=== PATIENT | female | born 2005 ===

== ENCOUNTER 2025-01-08 15:45 | Emergency (ER) | payer MEDICAID, SELFPAY ==
--- NOTE | ~2025-01-08 | CT_ITS ---
CLINICAL HISTORY: head injury, vomiting CT head without contrast. COMPARISON: None FINDINGS: The visualized paranasal sinuses are clear. The mastoid air cells are clear. No calvarial fracture. No evidence for mass or mass effect. No intracranial hemorrhage or abnormal extra-axial fluid collection. No evidence of hydrocephalus. The basilar cisterns are patent. Posterior fossa appears unremarkable. IMPRESSION: 1. No acute intracranial findings. This document has been electronically signed by: Nico Riggins MD on 01/08/2025 18:10:07
--- NOTE | 2025-01-08 15:55 | ED.NAVMDI ---
HPI - Nausea/Vomiting/Diarrhea General Chief complaint: Nausea/Vomiting/Diarrhea Stated complaint: vomiting, passed out Time Seen by Provider: 01/08/25 19:29 Source: patient and other (Friend) Mode of arrival: ambulatory Limitations: no limitations History of Present Illness ED Provider: Dr. Mauro Florez HPI Narrative: 19-year-old transgender male history of IBS and acid reflux who uses the pronouns he and they who presents emergency department for evaluation of nausea, vomiting, abdominal pain and 2 syncopal episodes. Patient states he vomits daily and he attributes this to his IBS and acid reflux. He states today however he vomited all day and was not able to hold down any food or fluid. His friend who is with him witnessed 2 syncopal episodes after the patient vomited. The patient's syncopal episodes were brief and the patient did not injure himself. He states that he is feeling dizzy and lightheaded especially if he stands up too quickly. He is complaining of abdominal pain which she describes as a pressure-like pain. He points to his epigastric area in his right upper quadrant when asked to localize the pain. The patient does smoke marijuana daily but he was never been diagnosed with cyclic vomiting syndrome. You denied fever, chills, rhinorrhea, sore throat, cough, chest pain, shortness of breath, diarrhea, dark, black or bloody stools. Related Data Previous Rx's ?Medication ?Instructions ?Recorded famotidine 20 mg tablet (Pepcid) 20 mg PO DAILY #30 tabs 01/08/25 ondansetron 4 mg disintegrating 4 mg PO Q6-8H PRN nausea and 01/08/25 tablet vomiting #14 tabs Allergies Allergy/AdvReac Type Severity Reaction Status Date / Time No Known Allergies Allergy Verified 01/08/25 16:00 Review of Systems Review of Systems: Yes all other systems are reviewed and are negative [facility] Past Medical History [facility] Narrative: Social history: The patient smokes 1 or 2 cigarettes per day. He drinks alcohol 2 times a week and when he drinks he will drink 3-4 glasses of wine or mixed drinks. He does smoke marijuana 3 times daily. Social History Social History Smoked in Last 30 Days: No Use of substances other than those prescribed or required for medical reasons: No Advance Directives: No Advance Directives Information Provided: No Patient : No Physical Exam Vital Signs: Vital Signs: Last Vital Signs Temp 97.9 F 01/08/25 21:50 Pulse 61 01/08/25 21:50 Resp 18 01/08/25 21:50 BP 136/70 01/08/25 21:50 Pulse Ox 99 01/08/25 21:50 O2 Del Method Room Air 01/08/25 21:50 BMI result Body Mass Index 29.2 Vital signs were normal Exam: General: Awake, alert in no distress Head: Normocephalic, atraumatic EENT: PERRL, Lids normal, sclera normal, conjunctiva normal, nose normal , ears normal, throat without erythema or exudates Neck: Supple, no adenopathy Lung: breath sounds symmetric, no wheezing, rales or rhonchi Chest: symmetric movement, nontender Heart: regular rate and rhythm, normal S1, S2 no murmurs or rubs Abdomen: soft, non-tender, nondistended, normal bowel sounds Back: no vertebral tenderness, no CVAT Extremities: no deformities, moves all extremities symmetrically Neuro: Awake, alert, oriented, normal speech, cranial nerves intact, moves all extremities symmetrically Psych: Pleasant, cooperative Course Course Course Narrative: This is an RME performed by Johnathan Lugo CNP: Additional HPI, ROS, PE not included below will be deferred to primary provider. 19 yo accompanied by male partner, without sig PMHx, presents to ED due to waking up at 12:00 today with nausea and vomiting. Partner states he witnessed her passing out twice after vomiting, hitting her head on the floor, and had to pick her up off the floor. She does not remember falling or hitting her head. When they went to vomit again, she reports vision going black . Reports 4 episodes of vomiting today. She reports she went out last night and had 1 drink and smoked marijuana. Denies eating new/bad food. States she broke out in hives yesterday after being stressed. Denies bloody vomit, diarrhea, black/bloody stool, PE: patient in wheelchair feeling weak, no active vomiting in triage Plan: labs, EKG, viral swab, CT head Medications Administered Discontinued Medications Generic Name Dose Route Start Last Admin Trade Name Freq PRN Reason Stop Dose Admin Famotidine 20 mg 01/08/25 19:49 01/08/25 20:02 Famotidine/Pf 20 Mg/2 Ml Vial IVPUSH 01/08/25 19:50 20 mg ONCE ONE Administration Sodium Chloride 1,000 mls @ 999 mls/hr 01/08/25 19:49 01/08/25 20:58 Ns IV 01/08/25 20:49 Infused .Q1H1M STA Infusion Sodium Chloride 1,000 mls @ 999 mls/hr 01/08/25 19:52 01/08/25 20:58 Ns IV 01/08/25 20:52 Infused .Q1H1M STA Infusion Ketorolac Tromethamine 15 mg 01/08/25 19:49 01/08/25 20:02 Ketorolac Tromethamine 15 Mg/Ml Vial IVPUSH 01/08/25 19:50 15 mg ONCE STA Administration Ondansetron HCl 4 mg 01/08/25 19:49 01/08/25 20:02 Ondansetron Hcl 4 Mg/2 Ml Vial IVPUSH 01/08/25 19:50 4 mg ONCE ONE Administration Medical Decision Making Medical Decision Making [facility] Narrative: 19-year-old transgender male history of IBS and acid reflux who uses the pronouns he and they who presents emergency department for evaluation of nausea, vomiting, abdominal pain and 2 syncopal episodes. Patient has had multiple episodes of vomiting throughout the day with no food or fluid intake. Patient's syncopal episodes occurred after vomiting. He states he is feeling lightheaded and dizzy whenever he stands up. He is having epigastric and right upper quadrant pain. Review of systems were negative. Vital signs were normal. Exam did reveal epigastric and right upper quadrant tenderness. Differential diagnosis: ?Includes but is not limited to viral syndrome, gastritis, GERD, cyclic vomiting syndrome, anemia, electrolyte abnormalities, vasovagal syncope Course: 20:02 My interpretation patient's laboratory evaluation is as follows: Normocytic anemia with an H&H of 12.3 and 35.4. BUN elevated 24 with a normal creatinine. LFTs were normal. Ethanol was below detectable limits. Urinalysis was positive for leukocyte esterase. Microscopic revealed 12-50 WBCs trace bacteria. COVID-19, influenza and RSV tests were negative The patient's presentation is consistent with either a viral syndrome or flare-up of his acid reflux disease/gastritis. Patient has 2 syncopal episodes are consistent with post emesis vasovagal syncope caused by dehydration volume depletion. I ordered normal saline IV x2 L, Zofran 4 mg IV, Pepcid 20 mg IV and Toradol 15 mg IV. 21:21 The patient is feeling significantly better after the above treatment. Patient was discharged home with prescriptions for Zofran 4 mg ODT every 6-8 hours as needed for nausea and vomiting and Pepcid 20 mg daily for 30 days. Patient was given printed and verbal instructions at the time of discharge. He was also given a return to work note. Admission/Observation Consideration of admission/observation: Escalation of care including admission/observation considered (Yes) Lab Data MDM Lab Attestation statement: I reviewed the patient's lab results. 01/08/25 16:28 01/08/25 16:28 Labs: Lab Results 01/08/25 Range/Units 16:28 WBC 14.4 H (4.8-10.8) X10*3/uL RBC 3.83 L (4.20-5.50) X10*6/uL Hgb 11.9 L (12.0-16.0) g/dl Hct 34.9 L (37.0-47.0) % MCV 91.1 (80.0-98.0) fL MCH 31.1 (27.0-33.0) pg MCHC 34.1 (31.0-35.0) g/dl RDW 13.1 (11.0-16.0) % Plt Count 266 (160-400) X10*3/uL MPV 10.3 (9.4-12.3) fL Immature Gran % (Auto) 0.5 H (0.0-0.4) % Neut % (Auto) 78.3 H (45-73) % Lymph % (Auto) 15.3 L (20-40) % [place] % (Auto) 5.3 (2-11) % Eos % (Auto) 0.4 (0-4) % Baso % (Auto) 0.2 (0-2) % Lymph # (Auto) 2.2 (1.2-4.9) X10*3/uL [place] # (Auto) 0.8 (0.1-1.2) X10*3/uL Eos # (Auto) 0.1 (0.0-0.4) X10*3/uL Baso # (Auto) 0.0 (0.0-0.2) X10*3/uL Abs Immat Gran (auto) 0.07 H (0.00-0.03) X10*3/uL Absolute Neuts (auto) 11.3 H (2.0-8.3) x10*3/uL Absolute Nucleated RBC 0.000 (0.0-0.012) X10*3/uL Nucleated RBC % (auto) 0.0 (0.0-0.2) /100WBC Sodium 139 (135-145) mmol/L Potassium 4.2 (3.3-5.1) mmol/L Chloride 107 (96-108) mmol/L Carbon Dioxide 23 (22-29) mmol/L Anion Gap 13 (12-20) BUN 11 (9-16) mg/dL Creatinine 0.73 (0.5-1.4) mg/dL Estim Creat Clear Calc 109.2 Estimated GFR > 60 Random Glucose 85 (60-115) mg/dL Calcium 8.8 (8.4-10.2) mg/dL Magnesium 1.8 (1.6-2.6) mg/dL Total Bilirubin 0.3 (0.0-1.0) mg/dL AST 20 (5-31) U/L ALT 13 (0-31) U/L Alkaline Phosphatase 29 L (39-117) U/L Troponin I High Sens < 2.7 (<3.5-17.0) ng/L Total Protein 7.7 (6.5-8.0) g/dL Albumin 4.2 (3.5-5.0) g/dL Lipase 14 (8-78) U/L Beta HCG, Quant < 2 mIU/mL Urine Color Yellow Urine Appearance Clear Urine pH 5.5 (5.0-9.0) Ur Specific [place] 1.025 (1.005-1.025) Urine Protein Negative (Neg-Trace) mg/dL Urine Glucose (UA) Negative (Negative) mg/dL Urine Ketones Negative (Negative) mg/dL Urine Blood Negative (Negative) Urine Nitrite Negative (Negative) Ur Leukocyte Esterase Trace H (Negative) Urine RBC 0-2 (0-2) /HPF Urine WBC 0-5 (0-5) /HPF Ur Squamous Epith Cells 3-5 (0-2) /HPF Urine Bacteria None Seen (None Seen) Hyaline Casts 0-2 (0-2) /LPF Urine Test NEGATIVE (NEGATIVE) Influenza Type A (PCR) NEGATIVE (Negative) Influenza Type B (PCR) NEGATIVE (Negative) RSV RNA Qual (PCR) NEGATIVE (Negative) SARS-CoV-2 RNA (RT-PCR) NEGATIVE (Negative) Independent Interpretation I performed an independent interpretation of an: EKG Interpretation: My independent interpretation of the patient's 12 EKG done on 01/08/2025 at 16:17 hours is as follows: Normal sinus rhythm rate of 72, normal OR interval, QRS duration QTC interval, no ST segment elevation, no ST segment depression, no significant T-wave abnormalities Independent Historian Clinical information obtained from an independent historian. History obtained from or confirmed by: Friend Prescription Management I considered prescription management with: Other (Antiemetic: Zofran ODT; H2 simon: Pepcid) Discharge Plan Discharge Clinical Impression: Gastritis, Nausea & vomiting, Acute dehydration, Vasovagal syncopes Patient Disposition: Home, Self-Care Instructions: Gastritis (DC), Syncope (ED) Additional Instructions: Your blood work revealed mild anemia otherwise was unremarkable. At this time I believe that your daily vomiting may be caused by inflammation of your stomach from too much acid (gastritis) Take Pepcid (famotidine) 20 mg pills, 1 pill once a day for 2 weeks. ?This medication reduces the amount of acid that your stomach produces and will help the inflammation in your stomach heal. Take Zofran ODT 4 mg pills, 1 pill dissolved in your mouth every 8 hours as needed for nausea and vomiting. Continue taking your medications as prescribed by your providers. Follow-up with your doctor in 2 days. Please return to the emergency department if your symptoms get worse or if you develop any symptoms that are concerning to you. Please see the work note Prescriptions: New ondansetron 4 mg tablet,disintegrating 4 mg PO Q6-8H PRN (Reason: nausea and vomiting) Qty: 14 0RF famotidine [Pepcid] 20 mg tablet 20 mg PO DAILY Qty: 30 1RF Stand Alone Forms: Work/School Release Interventions: ED Discharge Assessment Last Done: 01/08/25 21:50 Discharge Date/Time: 01/08/25 21:51 Print Language: Kazakh
[2025-01-08 15:58] VITALS: BP 136/74; PULSE 72; RESP 18; TEMP 36.8; O2SAT 99; BMI 29.2
--- NOTE | 2025-01-08 16:03 | ECG_ITS ---
Test Reason : syncope Blood Pressure : */* mmHG Vent. Rate : 72 BPM Atrial Rate : 72 BPM P-R Int : 120 ms QRS Dur : 92 ms QT Int : 386 ms P-R-T Axes : -23 51 15 degrees QTcB Int : 422 ms Normal sinus rhythm RSR' or QR pattern in V1 suggests right ventricular conduction delay Borderline ECG No previous ECGs available Referred By: Linda Lugo Electronically Signed By: HOMAR CH
[2025-01-08 16:35] LABS: MANUAL DIFF FLAG NO
[2025-01-08 16:40] LABS: Basophils Percent Auto 0.2 % (0-2); Eosinophils Absolute Auto 0.1 X10*3/uL (0.0-0.4); Eosinophils Percent Auto 0.4 % (0-4); Hematocrit 34.9 % (37.0-47.0); Hemoglobin 11.9 g/dl (12.0-16.0); Imm Gran Abs Auto 0.07 X10*3/uL (0.00-0.03); Imm Gran Pct Auto 0.5 % (0.0-0.4); Lymphocytes Absolute Auto 2.2 X10*3/uL (1.2-4.9); Lymphocytes Percent Auto 15.3 % (20-40); Mean Corpuscular HGB Conc 34.1 g/dl (31.0-35.0); Mean Corpuscular Hemoglobin 31.1 pg (27.0-33.0); Mean Corpuscular Volume 91.1 fL (80.0-98.0); Mean Platelet Volume 10.3 fL (9.4-12.3); Monocytes Absolute Auto 0.8 X10*3/uL (0.1-1.2); Monocytes Percent Auto 5.3 % (2-11); Neutrophils Absolute Auto 11.3 x10*3/uL (2.0-8.3); Neutrophils Percent Auto 78.3 % (45-73); Platelet Count 266 X10*3/uL (160-400); Red Blood Count 3.83 X10*6/uL (4.20-5.50); Red Cell Distribution Width 13.1 % (11.0-16.0); White Blood Count 14.4 X10*3/uL (4.8-10.8)
[2025-01-08 16:42] LABS: Appearance Urine Clear; Color Urine Yellow; Glucose Urine UA Negative (Negative); Leukocyte Esterase Urine Trace (Negative); Nitrite Urine Negative (Negative); PH 5.5 (5.0-9.0); Specific Gravity - Urine 1.025 (1.005-1.025); UMIC TRIGGER UACC YES; UPreg QC Valid YES; Urine Blood Negative (Negative); Urine Ketones Negative (Negative); Urine Pregnancy NEGATIVE (NEGATIVE); Urine Protein Negative (Neg-Trace)
[2025-01-08 16:59] LABS: Alanine Aminotransferase 13 U/L (0-31); Albumin Level 4.2 g/dL (3.5-5.0); Anion Gap 13 (12-20); Aspartate Amino Transferase 20 U/L (5-31); Bilirubin Total 0.3 mg/dL (0.0-1.0); Blood Urea Nitrogen 11 mg/dL (9-16); Calcium 8.8 mg/dL (8.4-10.2); Carbon Dioxide 23 mmol/L (22-29); Chloride 107 mmol/L (96-108); Creatinine Clr Calc Pharmacy 109.2; Estimated Glomerular Filt Rate > 60; Glucose Random 85 mg/dL (60-115); HCG Quantitative < 2 mIU/mL; Lipase 14 U/L (8-78); Magnesium 1.8 mg/dL (1.6-2.6); Potassium 4.2 mmol/L (3.3-5.1); Sodium 139 mmol/L (135-145); Total Protein 7.7 g/dL (6.5-8.0)
[2025-01-08 17:04] LABS: Troponin-I High Sensitivity < 2.7 ng/L (<3.5-17.0)
[2025-01-08 17:17] LABS: Influenza A PCR NEGATIVE (Negative); Influenza B PCR NEGATIVE (Negative); Resp Syncy Virus RNA Qual PCR NEGATIVE (Negative); SARS COV2 PCR INHOUSE NEGATIVE (Negative)
[2025-01-08 17:23] LABS: Alkaline Phosphatase 29 U/L (39-117)
[2025-01-08 17:51] LABS: Bacteria Urine None Seen (None Seen); Hyaline Casts Urine 0-2 /LPF (0-2); RBC Urine 0-2 /HPF (0-2); WBC Urine 0-5 /HPF (0-5)
[2025-01-08] MEDS: 0.9 % Sodium Chloride 1,000 ML 999 ML IV ×2 (19:57)
[2025-01-08] MEDS: ondansetron HCL 4 MG/2 ML VIAL IVPUSH (20:02)
[2025-01-08] MEDS: Ketorolac Tromethamine 15 MG/ML VIAL IVPUSH (20:02)
[2025-01-08] MEDS: Famotidine/PF 20 MG/2 ML VIAL IVPUSH (20:02)
[2025-01-08 20:06] VITALS: BP 125/71; PULSE 60; RESP 18; O2SAT 99
[2025-01-08 21:50] VITALS: BP 136/70; PULSE 61; RESP 18; TEMP 36.6; O2SAT 99
== END 2025-01-08 21:51 | disposition home or self-care (01) ==
PROVIDERS: Nurse Practitioner Family; Emergency Provider Emergency Medicine Emergency Medical Services
DX: K29.70 Gastritis, unspecified, without bleeding (principal); R11.2 Nausea with vomiting, unspecified; E86.0 Dehydration; R55 Syncope and collapse; R10.11 Right upper quadrant pain; R42 Dizziness and giddiness; F17.210 Nicotine dependence, cigarettes, uncomplicated; F12.90 Cannabis use, unspecified, uncomplicated; F64.0 Transsexualism; Z03.818 Encounter for observation for suspected exposure to other biological agents ruled out
CPT/HCPCS: 0241U; 36415; 70450; 80053; 81001; 81003; 81025; 83690; 83735; 84484; 84702; 85025; 93005; 96361; 96374; 96375; 99285; J1308; J1885; J2405

== ENCOUNTER → 2025-01-08 16:03 | Outpatient (BNV) | payer MEDICAID, SELFPAY | PROVIDERS: Emergency Provider Emergency Medicine Emergency Medical Services; Visit Provider Internal Medicine | DX: R55 Syncope and collapse (principal) | CPT/HCPCS: 93010 ==

== ENCOUNTER → 2025-01-08 16:03 | Outpatient (BNV) | payer MEDICAID, SELFPAY | PROVIDERS: Visit Provider Radiology Diagnostic Radiology | DX: S09.90XA Unspecified injury of head, initial encounter (principal); R11.10 Vomiting, unspecified | CPT/HCPCS: 70450 ==

== ENCOUNTER 2025-05-17 12:28 | Emergency (ER) | payer MEDICAID, SELFPAY ==
[2025-05-17 12:36] VITALS: BP 138/78; PULSE 79; O2SAT 98
--- NOTE | 2025-05-17 12:52 | ECG_ITS ---
Test Reason : PROLONGED QT Blood Pressure : */* mmHG Vent. Rate : 56 BPM Atrial Rate : 56 BPM P-R Int : 134 ms QRS Dur : 86 ms QT Int : 430 ms P-R-T Axes : -1 59 26 degrees QTcB Int : 414 ms Sinus bradycardia with sinus arrhythmia Otherwise normal ECG When compared with ECG of 08-Jan-2025 16:17, No significant change was found Referred By: Kelly Mena Electronically Signed By: HOMAR CH
[2025-05-17 12:54] VITALS: BP 166/99; PULSE 61; RESP 16; TEMP 36.3; O2SAT 100; BMI 25.0
--- NOTE | 2025-05-17 13:02 | ED_ITS ---
HPI - Psych General Chief Complaint: Psychiatric Symptoms Stated Complaint: section 12, calm Time Seen by Provider: 05/17/25 12:46 Source: patient and EMS Mode of arrival: EMS Limitations: no limitations History of Present Illness ED Provider: ABE JOHNSON PA-C HPI Narrative: 20-year-old female with past medical history significant for IBS and GERD presents to the ED today via EMS after making SI statements. Patient tells me that she messaged her therapist last night stating that she wanted to jump off of a bridge. States she has been feeling like harming herself for a while . Reports previous attempts at harming herself by overdosing. She denies taking any medications prior to arrival today. She reports frustration over the inconvenience of being brought to our facility ED today as she had to miss both school and work. Denies HI. Denies AH/VH/TH. Denies etoh consumption or illicit substance use. She also reports concern for STDs. Admits to recent unprotected intercourse. Reports cloudy yellow vaginal discharge and vaginal itching. Denies any abdominal pain, flank pain, urinary sx, lesions/wounds, vaginal bleeding. No other physical concerns. Related Data Home Medications ?Medication ?Instructions ?Recorded ?Confirmed norelgestromin 150 mcg-e.estradiol 1 patch topical QWE EK 05/17/25 05/17/25 35 mcg/24 hr weekly transderm patch (Xulane) testosterone 1 % (50 mg/5 gram) 1 packet transdermal D AILY 05/17/25 05/17/25 transdermal gel packet Allergies Allergy/AdvReac Type Severity Reaction Status Date / Time No Known Allergies Allergy Verified 05/17/25 12:56 Review of Systems 2 Review of Systems: Yes all other systems are reviewed and are negative PMFSH Past Medical History Attestation statement: The following information was validated with the patient. Source: old records reviewed and nursing notes reviewed Social History Social History Unable to assess alcohol history related to: Refusing to respond Smoked in Last 30 Days: No Use of substances other than those prescribed or required for medical reasons: Refusing to respond Advance Directives: No Advance Directives Information Provided: No Do you have a plan to hurt others: No Plan Physical Exam 2 Vital Signs: Vital Signs: Last Vital Signs Temp 99 F 05/17/25 22:26 Pulse 62 05/17/25 22:26 Resp 13 05/17/25 22:26 BP 149/87 H 05/17/25 22:26 Pulse Ox 100 05/17/25 22:26 O2 Del Method Room Air 05/17/25 22:26 BMI result Body Mass Index 25.0 hypertensive, vitals are otherwise wnl General: sitting in silence, staring blankly at the wall Skin: Warm, dry, intact. No rashes or lesions. Head: Normocephalic, atraumatic. EENT: Hearing is intact b/l. Conjunctiva clear. Sclera is anicteric. PERRLA. EOM intact. Moist mucous membranes.? Cardiac: Chest wall symmetric. RRR Lungs: Normal respiratory effort without accessory muscle use. CTA bilaterally Abdomen: Soft, non-tender, non-distended. No rebound tenderness or guarding. Positive BS x4. Pelvic: deferred. Ext: Upper and lower extremities atraumatic, without tenderness, deformity, swelling or erythema Neuro: AOx3. Normal speech. CN 2-12 grossly intact. Ambulating with steady gait. Psych: flat affect Course Course Course Narrative: 1538 -- CBC showing slight leukocytosis to 11.1, which appears to be around patient's baseline when compared to priors. No left shift. No anemia. H&H stable. Chemistry showing slight hyponatremia to 146. No other acute electrolyte abnormalities requiring intervention. No LUPE. Liver function at baseline. Urine showing trace leukocyte esterase, 6-10 WBCs. She denies any urinary symptoms at this point. Will await urine culture. Urine negative. CT/NG, BV and trich pending. Urine toxicology positive for THC, otherwise negative. Salicylates undetectable. Ethanol 53. EKG showing sinus bradycardia with sinus arrhythmia. No acute ischemic changes. > at this time, patient is medically cleared. pending care team eval. placed in pysician observation. Reevaluation(s) Reevaluation #1: Time: 22:49 Date: 05/17/25 Provider: Arya Carranza MD Physician observation ended at 21:00. Patient has been cleared for discharge by the CARE team. I saw the patient as well. The patient denies any suicidality or homicidal ideation. I feel the patient is demeanor was calm and I felt the patient seemed credible. I felt very comfortable discharging the patient. Medical Decision Making Medical Decision Making [facility] Narrative: 20-year-old female with past medical history significant for IBS and GERD presents to the ED today via EMS after making SI statements. Differential diagnosis includes anemia, electrolyte abnormality, mood disorder, anxiety, depression, SI, polysubstance abuse Presentation not consistent with acute organic causes to include delirium, dementia or drug induced disorders (acute ingestions or withdrawal; no evidence of toxidrome).? Given the H&P, I suspect this patient is suicidal and will require observation. Will consult care team to evaluate the patient. Will also obtain labs for medical clearance. Plan: labs, EKG, ASA/APAP levels, ETOH level, UDS, care team consultation, reassessment Will add CT/NG, BV, and trich testing. patient opting to self swab. Differential Diagnosis Differential Diagnoses: The differential diagnosis associated with the presentation includes as above Admission/Observation Consideration of admission/observation: Escalation of care including admission/observation considered Lab Data [facility] Lab Attestation statement: I reviewed the patient's lab results. as above. 05/17/25 13:32 05/17/25 13:32 Labs: Lab Results 05/17/25 05/17/25 05/17/25 Range/Units 13:32 14:58 16:57 WBC 11.1 H (4.8-10.8) X10*3/uL RBC 4.42 (4.20-5.50) X10*6/uL Hgb 13.3 (12.0-16.0) g/dl Hct 40.0 (37.0-47.0) % MCV 90.5 (80.0-98.0) fL MCH 30.1 (27.0-33.0) pg MCHC 33.3 (31.0-35.0) g/dl RDW 12.9 (11.0-16.0) % Plt Count 285 (160-400) X10*3/uL MPV 10.0 (9.4-12.3) fL Immature Gran % (Auto) 0.3 (0.0-0.4) % Neut % (Auto) 66.1 (45-73) % Lymph % (Auto) 24.5 (20-40) % [place] % (Auto) 7.4 (2-11) % Eos % (Auto) 1.3 (0-4) % Baso % (Auto) 0.4 (0-2) % Lymph # (Auto) 2.7 (1.2-4.9) X10*3/uL [place] # (Auto) 0.8 (0.1-1.2) X10*3/uL Eos # (Auto) 0.1 (0.0-0.4) X10*3/uL Baso # (Auto) 0.0 (0.0-0.2) X10*3/uL Abs Immat Gran (auto) 0.03 (0.00-0.03) X10*3/uL Absolute Neuts (auto) 7.4 (2.0-8.3) x10*3/uL Absolute Nucleated RBC 0.000 (0.0-0.012) X10*3/uL Nucleated RBC % (auto) 0.0 (0.0-0.2) /100WBC Sodium 146 H (135-145) mmol/L Potassium 3.4 (3.3-5.1) mmol/L Chloride 108 (96-108) mmol/L Carbon Dioxide 26 (22-29) mmol/L Anion Gap 15 (12-20) BUN 7 L (9-16) mg/dL Creatinine 0.87 (0.5-1.4) mg/dL Estim Creat Clear Calc 91.2 Estimated GFR > 60 Random Glucose 76 (60-115) mg/dL Calcium 9.5 D (8.4-10.2) mg/dL Total Bilirubin 0.4 (0.0-1.0) mg/dL AST 26 (5-31) U/L ALT 22 (0-31) U/L Alkaline Phosphatase 42 (39-117) U/L Total Protein 8.5 H (6.5-8.0) g/dL Albumin 4.8 (3.5-5.0) g/dL Urine Color Yellow Urine Appearance Clear Urine pH 5.5 (5.0-9.0) Ur Specific [place] >= 1.030 H (1.005-1.025) Urine Protein Trace (Neg-Trace) mg/dL Urine Glucose (UA) Negative (Negative) mg/dL Urine Ketones Negative (Negative) mg/dL Urine Blood Negative (Negative) Urine Nitrite Negative (Negative) Ur Leukocyte Esterase Trace H (Negative) Urine RBC 0-2 (0-2) /HPF Urine WBC 6-10 H (0-5) /HPF Ur Squamous Epith Cells 0-2 (0-2) /HPF Urine Bacteria None Seen (None Seen) Hyaline Casts 0-2 (0-2) /LPF Urine Test NEGATIVE (NEGATIVE) Ur N gonorrhoeae DNA (PCR) NOT DETECTED (Not Detect.) Salicylates < 5.0 L (15-30) mg/dL Urine Opiates Screen Not Detected (Not Detect) Ur Buprenorphine Scrn Not Detected (Not Detect) ng/mL Ur Oxycodone Screen Not Detected (Not Detect) ng/mL Urine Methadone Screen Not Detected (Not Detect) ng/mL Urine Fentanyl Screen Not Detected (Not Detect) Ur Barbiturates Screen Not Detected (Not Detect) Ur Phencyclidine Scrn Not Detected (Not Detect) Ur Amphetamines Screen Not Detected (Not Detect) U Benzodiazepines Scrn Not Detected (Not Detect) Urine Cocaine Screen Not Detected (Not Detect) U Marijuana (THC) Screen POSITIVE H (Not Detect) Ethyl Alcohol 53 mg/dL Ur Chlamydia DNA (PCR) NOT DETECTED (Not Detect.) T. vaginalis (PCR) DETECTED A (Not Detect) Bact vaginosis (PCR) NEGATIVE (Negative) C. krusei/glabrata (PCR) NOT DETECTED (Not Detect) Kiana group (PCR) NOT DETECTED (Not Detect) Independent Interpretation I performed an independent interpretation of an: EKG Interpretation: EKG showing sinus bradycardia with sinus arrhythmia, QT 430, QTC 414, no acute ischemic changes or ST elevations External Record Review External record reviewed: Inpatient record Social Determinants Patient?s care significantly limited by Social Determinants of Health including: Other Social Determinant of Health Critical Care Time Critical Care Time Critical Care Time: No Discharge Plan Discharge Clinical Impression: Encounter for behavioral health screening, Encounter for assessment of STD exposure Patient Disposition: Home, Self-Care Additional Instructions: Please plan on following up with your regular provider at the [facility]. You were seen in our Emergency Department today for treatment of a behavioral health issue. It is important after your visit that you follow up with either your behavioral health provider or a primary care doctor within 7 days.? If you have trouble finding a therapist you can reach out to [address] [phone] The National Suicide and Crisis Lifeline can be reached 7 days a week 24 hours a day.? Call 988 to speak with someone.? Return for any worsening symptoms or concerns such as thoughts of self harm or harm to others. Please call 911 if you feel your mental health is worsening.? Prescriptions: No Action norelgestromin-ethin.estradiol [Xulane] 150-35 mcg/24 hr patch weekly 1 patch topical QWEEK testosterone 1 % (50 mg/5 gram) Gel In Packet 1 packet TRANSDERMAL DAILY Referrals: [facility] [Provider Group] Stand Alone Forms: Work/School Release Interventions: [place]-Suicide Risk Severity Scale Last Done: 05/17/25 13:25 ED Discharge Assessment Last Done: 05/17/25 22:26 Discharge Date/Time: 05/17/25 22:30 Print Language: Qatari
[2025-05-17 13:36] LABS: MANUAL DIFF FLAG NO
[2025-05-17 13:38] LABS: Hematocrit 40.0 % (37.0-47.0); Hemoglobin 13.3 g/dl (12.0-16.0); Imm Gran Abs Auto 0.03 X10*3/uL (0.00-0.03); Imm Gran Pct Auto 0.3 % (0.0-0.4); Lymphocytes Absolute Auto 2.7 X10*3/uL (1.2-4.9); Mean Corpuscular HGB Conc 33.3 g/dl (31.0-35.0); Mean Corpuscular Hemoglobin 30.1 pg (27.0-33.0); Mean Corpuscular Volume 90.5 fL (80.0-98.0); NRBC Abs Auto 0.000 X10*3/uL (0.0-0.012); NRBC Pct Auto 0.0 /100WBC (0.0-0.2); Platelet Count 285 X10*3/uL (160-400); Red Blood Count 4.42 X10*6/uL (4.20-5.50); White Blood Count 11.1 X10*3/uL (4.8-10.8)
[2025-05-17 13:55] LABS: Alanine Aminotransferase 22 U/L (0-31); Albumin Level 4.8 g/dL (3.5-5.0); Alkaline Phosphatase 42 U/L (39-117); Anion Gap 15 (12-20); Aspartate Amino Transferase 26 U/L (5-31); Blood Urea Nitrogen 7 mg/dL (9-16); Calcium 9.5 mg/dL (8.4-10.2); Carbon Dioxide 26 mmol/L (22-29); Chloride 108 mmol/L (96-108); Creatinine Clr Calc Pharmacy 91.2; Estimated Glomerular Filt Rate > 60; Potassium 3.4 mmol/L (3.3-5.1); Salicylate < 5.0 mg/dL (15-30); Sodium 146 mmol/L (135-145); Total Protein 8.5 g/dL (6.5-8.0)
--- NOTE | 2025-05-17 14:32 | PC.NURSE ---
Patient's med rec completed, patient states they use testerone gel daily, not found on external med rec. Provider Kelly made aware.
[2025-05-17 15:10] LABS: UPreg QC Valid YES
[2025-05-17 15:12] LABS: Appearance Urine Clear; Glucose Urine UA Negative (Negative); PH 5.5 (5.0-9.0); Specific Gravity - Urine >= 1.030 (1.005-1.025); UMIC TRIGGER UACC YES
[2025-05-17 15:17] LABS: UACC Culture Trigger YES
[2025-05-17 15:22] LABS: Cannabinoid Screen Urine POSITIVE (Not Detect)
[2025-05-17 17:04] VITALS: BP 149/87; PULSE 62; RESP 13; TEMP 37.2; O2SAT 100
--- NOTE | 2025-05-17 17:30 | PC.NURSE ---
Pt to call partner to bring in patient's meds from home. Pharmacy aware.
[2025-05-17 18:12] LABS: CT PCR Urine NOT DETECTED (Not Detect.); NG PCR Urine NOT DETECTED (Not Detect.)
--- OUTSIDE RECORDS SUMMARY | 2025-05-17 20:17 | XMS_ITS | Clinical Summary ---
Author Organization [email or web address] [facility] Address [address] [place] [address] Care Team Providers Care Boiler Repair Supervisor Name Role Phone Unavailable Primary Care Provider Unavailabl e Encounters Date Type Department Care Team Description 03/23/2025 Population Health Risk Score [facility] (C3) Department [address] [facility] [address] [place] [address] Provider, Population Health Generic from Last 3 Months Social History Tobacco Use Types Packs/Day Years Used Date Smoking Tobacco: Never Assessed Comments Unknown Sex and Gender Information Value Date Recorded Sex Assigned at Not on file Legal Sex Female 9:25 PM EDT Gender Identity Not on file Sexual Orientation Not on file Plan of Treatment Health Maintenance Due Date Last Done Comments Chlamydia and Gonorrhea Screening 2003 Depression Screening 2003 SDOH Screening 2003 Disability Screening 2003 Alcohol/Substance Use Screening 2015 Tobacco Screening 2015 Family Planning (PISQ) 2018 Meningococcal B Vaccine (1 of 2 - Standard) 2019 Hepatitis C Screening 2021 Pap Smear 2024 DTaP/Tdap/Td Vaccines (7 - Td or Tdap) 04/12/2024 04/12/2014, 12/23/2007, 10/10/2004, Additional history exists COVID-19 Vaccine ( season) 2025 Influenza Vaccine (#1) 2025 06/30/2014, 2012 Zoster Vaccines (1 of 2) 2053 RSV Patients and Patients Aged 60 years or older (1 - 1-dose 75+ series) 2078 Hepatitis B Vaccines Completed 04/21/2004, 2003, 2003 HIB Vaccines Completed 10/10/2004, 10/04, 2003, Additional history exists IPV Vaccines Completed 12/23/2007, 04/2005, 2003, Additional history exists Hepatitis A Vaccines Completed 05/08/2013, 06/08/20 11 HPV Vaccines Completed 11/08/2014, 06/03, 04/12/2014 Meningococcal Vaccine Completed 10/14/2019, 014 Pneumococcal Vaccine: Pediatrics (0 to 5 Years) and At-Risk Patients (6 to 49) Years Aged Out 02/24/2024, 11/08/2014, 10/10/2004, Additional history exists No longer eligible based on patient's age to complete this topic HIV Screening Completed 08/17/2024, 08/02, 06/24/2024, Additional history exists RSV under 20 months Aged Out No longe r eligible based on patient's age to complete this topic Rotavirus Vaccines Aged Out No longer eligible based on patient's age to complete this topic
--- OUTSIDE RECORDS SUMMARY | 2025-05-17 20:17 | XMS_ITS | Clinical Summary ---
Author Organization [facility] Address [address] [place] [address] Care Team Providers Care Spring Assembler Supervisor Name Role Phone Sandra Robin CHEKO Primary Care Provider Source Comments PLEASE NOTE, if this patient is a minor, it may be UNLAWFUL to discuss sensitive information that is contained in these records (such as FAMILY PLANNING, MENTAL HEALTH or SUBSTANCE ABUSE) with the minor patient's parent or other person without the patient's specific authorization.[facility] Allergies No known active allergies Medications famotidine (PEPCID) 20 mg tablet Take 20 mg by mouth once daily. 5 Active testosterone 1.62 % (40.5 mg/2.5 gram) glpk Apply topically. 5 Active meclizine 25 mg chewable tabletIndication s:Dizziness Place 1 Tablet into mouth, chew and swallow 3 (three) times daily as needed for dizziness or nausea. 90 Tablet 5 Active amitriptyline (ELAVIL) 25 mg tabletIndication s:Migraine without status migrainosus, not intractable, unspecified migraine type Take 1 Tablet by mouth nightly at bedtime. 30 Tablet 2 5 Active SUMAtriptan (IMITREX) 25 mg tabletIndication s:Migraine without status migrainosus, not intractable, unspecified migraine type Take 1 Tablet by mouth 1 (one) time as needed for migraine for up to 1 dose. 6 Tablet 5 Active norelgestromin-e thin.estradioL 150-35 mcg/24 hr patchIndications :Family planning Place 1 Patch onto the skin once a week Continuous cycle use, no patch free week. 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 C/w regimen, repeat levels in 1-2 months due to missed dose Headaches due to old head injury 10/18/2019 H/O strabismus 05/07/2013 Overview (05/07/2013): Wears glasses. Resolved Problems Problem Noted Date Diagnosed Date Resolved Date Class 1 obesity 02/24/2024 08/17/2024 Sinusitis 03/25/2023 04/24/2023 Severe major depression with psychotic features ([facility]) 02/19/2023 02/19/2023 02/24/2024 Gastroesophageal reflux dise ase without esophagitis 03/10/2017 10/18/2019 H/O bronchiolitis 05/07/2013 10/18/2019 H/O neutropenia 05/07/2013 10/18/2019 Overview (05/07/2013): 2009, resolved. Immunizations Immunization Administration Dates Next Due DTAP (DAPTACEL),5 PERTUSSIS ANTIGENS ,10/10/2004,2003,08/17,2003 HEP B, PED/ADOL (POKQUZG-Z-DMHH/RECOMBIVAX-PEDS) 04/21/2004,2003,2003 HPV, QUADRIVALENT 11/08/2014,06/30/2014,04/12/20 14 Hep A, Ped/adol, 2 Dose 05/08/2013,06/08/2011 Hib (PRP-T) 10/10/2004, 4,2003,06/15 INFLUENZA, SEASONAL, INJECTA BLE, PRESERVATIVE FREE 06/30/2014,05/08/2013 IPV (IPOL) 12/23/2007, 5,2003,08/17,2003,2003 MENINGOCOCCAL MCV4P (MENACTRA) 10/14/2019 MENINGOCOCCAL MPSV4 04/12/2014 MMR (MMR II/Priorix) 12/23/2007,04/21/2004 PNEUMOCOCCAL CONJUGATE PCV 13 11/08/2014 PNEUMOCOCCAL CONJUGATE PCV 2 0 (Prevnar 20) 02/24/2024 PNEUMOCOCCAL CONJUGATE PCV 7 10/10/2004, 2003,2003,06/15 TDAP 04/12/2014 Varicella (Varivax), Live Vaccine 12/23/2007, Family History Medical History Relation Name Comments No Known Problems Father Leukemia Maternal Grandmother Breast cancer Mother Breast cancer Other Cancer Other Relation Name Status Comments Father Alive Maternal Grandmother Alive Mother Alive Other Social History Tobacco Use Types Packs/Day Years Used Date Smoking Tobacco: Former Cigarettes Smokeless Tobacco: Never Tobacco Cessation:Counseling Given: Not Answered Comments:1 cig every 2 days Alcohol Use Standard Drinks/Week Comments Yes 0 (1 standard drink = 0.6 oz pur e alcohol) socially Social Connections Answer Date Recorded Connectedness 0 03/16/2022 Financial Resource Strain Answer Date R ecorded Financial Resource Strain 0 2021 Stress Answer Date Recorded Stress 0 03/16/2022 Physical Activity Answer Date Recorded Physical Activity 0 04/25/2019 Food Insecurity Answer Date Recorded Food 0 03/16/2022 Transportation Needs Answer Date Record ed Transportation 0 03/16/2022 Housing Stability Answer Date Recorded Housing 0 03/16/2022 Safety and Environment Answer Date Jaskaran rded How often does anyone, inclu ding family and friends, physically hurt you? 1 02/24/2024 Utilities Answer Date Recorded Utilities 0 03/16/2022 Employment Answer Date Recorded Stress 0 03/16/2022 Comments No Sex and Gender Information Value Date Recorded Sex Assigned at Female 07/10/2024 5:23 AM PST Legal Sex Female 11:36 AM PDT Gender Identity Transgender Male 10/14/2019 11:1 4 AM PST Sexual Orientation Pansexual 02/24/2024 5: 42 AM PDT Occupation Industry Job Start Date Job End Date [employer] Not on file Not on file Not on file Last Filed Vital Signs Vital Sign Reading Time Taken Comments Blood Pressure 119/81 10/12/2024 2:49 PM EST Pulse 78 10/12/2024 2:49 PM EST Temperature 37.1 C (98.7 F) 08/17/2024 1:24 PM EST Respiratory Rate 16 10/12/2024 2:49 PM EST Oxygen Saturation 98% 10/12/2024 2:49 PM EST Inhaled Oxygen Concentration - - Weight 66.7 kg (147 lb) 10/12/2024 2:49 PM EST Height 158 cm (5' 2.21 ) 10/12/2024 2:49 PM EST Body Mass Index 26.71 10/12/2024 2:49 PM EST Plan of Treatment Upcoming Encounters Date Type Department Care Team (Late st Contact Info) Description 06/22/2025 1:00 PM EDT Office Visit [facility] [address] [place] [address] Sandra Robin [facility] [address] [place] [address] Health Maintenance Due Date Last Done Comments HPV Screening 2003 Imm-DTaP/Tdap/Td (7 - Td or Tdap) 04/12/2024 04/12/2014, 12/23/2007, 10/10/2004, Additional history exists Depression Monitoring 08/14/2024 05/15/2024 , 02/19/2023, 03/16/2022, Additional history exists Alcohol and Drug Screen 09/02/2024 02/24/20, 02/24/2024, 03/16/2022, Additional history exists Annual Wellness (Adult): Indicated (All Coverage) 02/23/2025 02/24/2024, 02/19/2023, 12/05/2021 Anxiety Screening 02/23/2025 02/24/2024 Diabetes Screening 02/23/2025 02/24/2024, 0 02/24/2024, 02/19/2023, Additional history exists Relationship Safety Screening/Counseling 02/23/2025 02/24/2024, 03/16/2022 STI Counseling 02/23/2025 02/24/2024, 02/19/2023 Ags-SEMWO-60 ( season) 2025 Imm-Influenza (#1) 2025 06/30/2014, 05/08/2013 Syphilis Screening 08/17/2025 08/17/2024, 1 , 06/01/2024, Additional history exists Chlamydia Screening 10/12/2025 10/12/2024, 08/17/2024, 07/09/2024, Additional history exists Gonorrhea Screening 10/12/2025 10/12/2024, 08/17/2024, 06/24/2024, Additional history exists Hypertension Screening (#1) 10/12/2025 Tobacco Screening 10/12/2025 10/12/2024, 02/24/2024 Cervical Cancer Screening 07/09/2027 Pap Smear 07/09/2027 07/09/2024 Pap + HPV 07/09/2029 07/09/2024 Imm-Hepatitis B Completed 04/21/2004, 06/02, 2003 Imm-Varicella Completed 12/23/2007, 04/21/2004 Imm-Hepatitis A Completed 05/08/2013, 06/08/2011 Imm-HPV Completed 11/08/2014, 06/03, 04/12/2014 HIV Screening Completed 08/17/2024, 06/03, 06/01/2024, Additional history exists Hepatitis C Screening Completed 08/17/2024 , 06/24/2024, 06/01/2024, Additional history exists Cervical Ablation/Cold-Knife Conization Discontinued Cervical Cryotherapy Discontinued Colposcopy Discontinued Endometrial Biopsy Discontinued Excision/Leep Discontinued HPV Genotyping Discontinued Vaginal Pap Discontinued Vulvoscopy Discontinued Procedures Procedure Name Priority Date/Time Associated Diagnosis Comments SURESWAB ADVANCED VAGINITIS PLUS, TMA Routine 10/12/2024 4:21 PM EST Sexually transmitted disease exposure HIV 1/2 AG & AB W/RFLX (4TH GEN) Routine 08/17/2024 1:54 PM EST Screening examination for venereal disease Chlamydia SYPHILIS ANTIBODY CASCADING REFLEX Routine 08/17/2024 1:54 PM EST Screening examination for venereal disease Chlamydia HEPATITIS C AB W/RFLX HCV RNA, QT, RT PCR Routine 08/17/2024 1:54 PM EST Screening examination for venereal disease Chlamydia THINPREP IMAGING PAP, HPV MRNA E6/E7 RFLEX HPV 16,18/45 CT/NG Routine 07/09/2024 4:27 PM EST Cervical cancer screening COMPREHENSIVE METABOLIC PANEL Routine 02/24/2024 2:57 PM EDT Routine general medical examination at a health care facility from Last 3 Months or Most Recently Relevant to Health Maintenance Results * (ABNORMAL) SURESWAB ADVANCED VAGINITIS PLUS, TMA (10/12/2024 4:21 PM EST) SURESWAB(R) ADV BACTERIAL VAGINOSIS (BV), TMA POSITIVE(A) NEGATIVE K121 [facility] KIANA SPECIES NOT DETECTED NOT DETECTED K121 [facility] KIANA GLABRATA NOT DETECTED NOT DETECTED K121 [facility] COMMENT K121 [facility] TRICHOMONAS VAGINALIS (TV), TMA NOT DETECTED NOT DETECTED K121 [facility] CHLAMYDIA TRACHOMATIS RNA, TMA NOT DETECTED NOT DETECTED K121 [facility] NEISSERIA GONORRHOEAE RNA, TMA NOT DETECTED NOT DETECTED K121 [facility] COMMENT K121 [facility] Vaginal Vaginal structure / Unknown 10/12/2024 4:21 PM EST 10/13/2024 4:45 AM EST Narrative [facility] - 10/13/2024 6:26 PM EST Kiana species C. albicans, C. tropicalis, C. parapsilosis, and/or C. dubliniensis can be detected, but not differentiated, in the Kiana spp. result. For additional information, please refer to https://Zootcard.Koko/faq/YFU059 (This link is being provided for information/ educational purposes only.) Phylicia Almaraz DO LAB - MICROBIOLOGY AMBULATORY Final Result Performing Organization Address [facility] Co de Phone Number [phone] [address], [employer] [address] [address] * HEPATITIS C AB W/RFLX HCV RNA, QT, RT PCR (08/17/2024 1:54 PM EST) Pathologist [facility] HEPATITIS C ANTIBODY NON-REACT AKIKO NON-REACT AKIKO [facility] Comment: HCV antibody was non-reactive. There is no laboratory evidence of HCV infection. In most cases, no further action is required. However, if recent HCV exposure is suspected, a test for HCV RNA (test code 52387) is suggested. For additional information please refer to http://Zootcard.Koko/faq/AQW91d4 (This link is being provided for informational/ educational purposes only.) Blood Blood / Unknown 08/17/2024 1 :54 PM EST 08/17/2024 1:54 PM EST Allyson Carlos NEEDLE PROCESS FELT GOODS SUPERVISOR LAB - BLOOD DRAW Edited Resu lt - Final Performing Organization Address [facility] Co de Phone Number [phone] [address] [address], [facility] [address] [address] * SYPHILIS ANTIBODY CASCADING REFLEX (08/17/2024 1:54 PM EST) Pathologist [facility] T. PALLIDUM AB, EIA NEGATIVE NEGATIVE K121 [facility] Comment: No antibodies to T. pallidum (the agent causing syphilis) were detected in the specimen. This result, however, does not exclude very recent T. pallidum infection; testing of a second specimen, collected 2-4 weeks after this specimen, is recommended if the index of suspicion for recent infection is high. Blood Blood / Unknown 08/17/2024 1 :54 PM EST 08/17/2024 1:54 PM EST us Allyson Carlos NP LAB - BLOOD DRAW Edited Resu lt - Final Performing Organization Address [facility] Co [place] [address], [facility] [address] [address] * HIV 1/2 AG & AB W/RFLX (4TH GEN) (08/17/2024 1:54 PM EST) Pathologist [facility] HIV AG/AB, 4TH GEN NON-REAC TIVE NON-REAC TIVE [facility] Comment: HIV-1 antigen and HIV-1/HIV-2 antibodies were not detected. There is no laboratory evidence of HIV infection. PLEASE NOTE: This information has been disclosed to you from records whose confidentiality may be protected by state law. If your state requires such protection, then the state law prohibits you from making any further disclosure of the information without the specific written consent of the person to whom it pertains, or as otherwise permitted by law. A general authorization for the release of medical or other information is NOT sufficient for this purpose. For additional information please refer to http://education.[employer]Ph[employer] Industries.Rypple/faq/FCD411 (This link is being provided for informational/ educational purposes only.) The performance of this assay has not been clinically validated in patients less than 2 years old. Blood Blood / Unknown 08/17/2024 1 :54 PM EST 08/17/2024 1:54 PM EST us Allyson Carlos NP LAB - BLOOD DRAW Final Resul t Performing Organization Address [facility]/ZIP Co de Phone Number [employer] [address] [address], [facility] [address] [address] * THINPREP IMAGING PAP, HPV MRNA E6/E7 RFLEX HPV 16,18/45 CT/NG (07/09/2024 4:27 PM EST) CHLAMYDIA TRACHOMATIS RNA, TMA NOT DETECTED NOT DETECTED [facility] NEISSERIA GONORRHOEAE RNA, TMA NOT DETECTED NOT DETECTED [facility] COMMENT [facility] CLINICAL INFORMATION See Note [facility] Comment:None given LMP See Note [facility] Comment:NONE GIVEN PREV. PAP See Note [facility] Comment:NONE GIVEN PREV. BX See Note [facility] Comment:NONE GIVEN SOURCE See Note [facility] Comment:Cervix STATEMENT OF ADEQUACY See Note [facility] Comment: Satisfactory for evaluation. Endocervical/transformation zone component absent. INTERPRETATION/RESU LT See Note [facility] Comment: Cytology Results: Negative for intraepithelial lesion or malignancy. INFECTION See Note [facility] Comment: Fungal organisms morphologically consistent with Kiana spp. COMMENT See Note [facility] Comment: This Pap test has been evaluated with computer assisted technology. Hector portions of this case have been reviewed by one or more pathologists. MANAGER HARDWARE See Note [facility] Warp 9 Comment: CMG, CT(ASCP) CT screening location: [place] [address] PATHOLOGIST See Note [facility] Comment: Randy Deal M.D. Direct , Board Certified in Anatomic and Clinical Pathology and Cytopathology (electronic signature) Consulting Pathologist [facility] [address] [place] [address] [facility] HPV MRNA E6/E7 Not Detected Not Detected [facility] Comment: Methodology: Skilled Trades Teacher-Mediated Amplification This assay detects E6/E7 viral messenger RNA (mRNA) from 14 high-risk HPV types (16,18,31,33,35,39,45,51,52,56,58,59,66,68). Cervical sources are required for HPV testing. If a vaginal source from a patient who has had a total hysterectomy with removal of cervix was submitted, please contact the testing laboratory for alternative testing options. For additional information, please refer to http://education.Koko/faq/WZG137h3 (This link if provided for information/ educational purposes only.) Swab Cervix uteri structure / Unknown 07/09/2024 4:27 PM EST 07/10/2024 10:35 AM EST Narrative [facility] - 07/15/2024 7:14 AM EST EXPLANATORY NOTE: The Pap is a screening test for cervical cancer. It is not a diagnostic test and is subject to false negative and false positive results. It is most reliable when a satisfactory sample, regularly obtained, is submitted with relevant clinical findings and history, and when the Pap result is evaluated along with historic and current clinical information. The analytical performance characteristics of this assay, when used to test SurePath(TM) specimens have been determined by [facility]. The modifications have not been cleared or approved by the FDA. This assay has been validated pursuant to the CLIA regulations and is used for clinical purposes. For additional information, please refer to https://education.Koko/faq/KQQ450 (This link is being provided for information/ educational purposes only.) us Phylicia Formisano DO LAB - PATHOLOGY AND CYTOLOGY A MBULATORY Final Result [facility] [address] [address], K121 [facility] [address] [place] [address] * COMPREHENSIVE METABOLIC PANEL (02/24/2024 2:57 PM EDT) GLUCOSE 85 65 - 99 mg/dL [facility] Comment: Fasting reference interval UREA NITROGEN (BUN) 14 7 - 25 mg/dL K121 [facility] CREATININE (blood) 0.88 0.50 - 0.96 mg/dL [facility] EGFR 96 > OR = 60 mL/min/1. 73m2 [facility] BUN/CREATININE RATIO SEE NOTE: 6 - [address] [facility] Comment: Not Reported: BUN and Creatinine are within reference range. SODIUM 135 135 - 146 mmol/L [facility] POTASSIUM 4.5 3.5 - 5.3 mmol/L [facility] CHLORIDE 100 98 - 110 mmol/L [facility] CARBON DIOXIDE 27 20 - 32 mmol/L [facility] CALCIUM 9.9 8.6 - 10.2 mg/dL K121 [facility] PROTEIN, TOTAL 8.1 6.1 - 8.1 g/dL K121 [facility] ALBUMIN 4.8 3.6 - 5.1 g/dL K121 [place] [facility] GLOBULIN 3.3 1.9 - 3.7 g/dL (calc) K121 [place] [facility] ALBUMIN/GLOBULI N RATIO 1.5 1.0 - 2.5 (calc) K121 [facility] BILIRUBIN, TOTAL 1.2 0.2 - 1.2 mg/dL K121 [facility] ALKALINE PHOSPHATASE 40 31 - 125 U/L K121 [facility] AST 16 10 - 30 U/L K121 [facility] ALT 13 6 - 29 U/L K121 [facility] Blood Blood / Unknown 02/24/2024 2 :57 PM EDT 02/24/2024 2:58 PM EDT us Allyson Carlos NP LAB - BLOOD DRAW Edited Resu lt - Final [facility] [address] [address], [facility] [address] [place] [address] from Last 3 Months or Most Recently Relevant to Health Maintenance Insurance [place] [address] ACO [facility] Medicaid Address: [facility] [id number] [place] [address] Care Teams Spring Assembler Supervisor Relationship Specialty Start Date End Date Sandra Robin FNP [facility] [place] [address] PCP - General Family Medicine, NEEDLE PROCESS FELT GOODS SUPERVISOR 04/15/25
--- OUTSIDE RECORDS SUMMARY | 2025-05-17 20:17 | XMS_ITS | Clinical Summary ---
Author Organization [facility] ity Address [address] [place] [address] Care Team Providers Care Community Aide Name Role Phone Unavailable Primary Care Provider Unavailabl e Social History Tobacco Use Types Packs/Day Years Used Date Smoking Tobacco: Never Assessed Comments Unknown Sex and Gender Information Value Date Recorded Sex Assigned at Not on file Legal Sex Female 4:25 AM EST Gender Identity Not on file Sexual Orientation Not on file Plan of Treatment Health Maintenance Due Date Last Done Comments Gonorrhea/Chlamydia Screening 2003 HPV Vaccines (1 - 3-dose series) 2018 Meningococcal B Vaccine (1 o f 2 - Standard) 2019 DTaP,Tdap,and Td Vaccines (1 - Tdap) 2022 Hepatitis B Vaccines (1 of 3 - 19+ 3-dose series) 2022 HIV Screening 08/05/2022 Hepatitis C Screening 08/05/2022 Social Influencers of Health Screening 08/05/2022 Cervical Cancer Screening: P ap Smear 2024 Depression Screening 09/02/2024 COVID-19 Vaccine (1 - 2023-2 5 season) 2025 Influenza Vaccine (#1) 2025 HIB Vaccines Aged Out No longer eligi ble based on patient's age to complete this topic Hepatitis A Vaccines Aged Out No long er eligible based on patient's age to complete this topic IPV Vaccines Aged Out No longer eligi ble based on patient's age to complete this topic MMR Vaccines Aged Out No longer eligi ble based on patient's age to complete this topic Meningococcal ACWY Vaccine Aged Out N o longer eligible based on patient's age to complete this topic Pneumococcal Vaccine: Pediat rics (0 to 5 Years) and At-Risk Patients (6 to 49 Years) Aged Out No longer eligible b ased on patient's age to complete this topic RSV Immunization Patients Un gema 20 months Aged Out No longer eligible b ased on patient's age to complete this topic Varicella Vaccines Aged Out No longer eligible based on patient's age to complete this topic Advance Directives Documents on File Type Date Recorded Patient Fork Lift Truck Operator Expl anation Health Care Decision (hx) 08/14/2016 AD ATKINS DIRECTIVE Health Care Decision (hx) 08/14/2016 AD ATKINS DIRECTIVE
--- OUTSIDE RECORDS SUMMARY | 2025-05-17 20:17 | XMS_ITS | Encounter Summary ---
Author Organization [facility] Address [address] [place] [address] Care Team Providers Care French Professor Name Role Phone Sandra Robin CHEKO Primary Care Provider Encounter Details Date Type Department Care Team (Late Contact Info) Description 10/18/2019 Interim Notes [facility] Main [address] [place] [id number] Diya Wilde PA-C [address] [place] [address] Social History Tobacco Use Types Packs/Day Years Used Date Smoking Tobacco: Passive Smo ke Exposure - Never Smoker Smokeless Tobacco: Never Alcohol Use Standard Drinks/Week Comments No 0 (1 standard drink = 0.6 oz pur e alcohol) Social Connections Answer Date Recorded Social Connections and Isolation 0 04/25/2019 Financial Resource Strain Answer Date R ecorded Financial Resource Strain 0 2018 Stress Answer Date Recorded Stress 0 04/25/2019 Physical Activity Answer Date Recorded Physical Activity 0 04/25/2019 Food Insecurity Answer Date Recorded Food 0 04/25/2019 Transportation Needs Answer Date Record ed Transportation 0 04/25/2019 Housing Stability Answer Date Recorded Housing 0 04/25/2019 Safety and Environment Answer Date Jaskaran rded Safety 0 04/25/2019 Utilities Answer Date Recorded Utilities 0 04/25/2019 Employment Answer Date Recorded Employment 0 04/25/2019 Comments No Sex and Gender Information Value Date Recorded Sex Assigned at Female 07/10/2024 5:23 AM PST Legal Sex Female 11:36 AM PDT Gender Identity Transgender Male 10/14/2019 11:1 4 AM PST Sexual Orientation Pansexual 02/24/2024 5: 42 AM PDT documented as of this encounter Plan of Treatment Upcoming Encounters Date Type Department Care Team (Late st Contact Info) Description 06/22/2025 1:00 PM EDT Office Visit [facility] [address] [place] [address] Sandra Robin FNP [address] [place] [address] documented as of this encounter Visit Diagnoses Not on filedocumented in this encounter Additional Health Concerns Assessment Noted Time PHQ-9 Depression Total Score: 7 08/14/20 18 11:48 AM PST documented as of this encounter Care Teams French Professor Relationship Specialty Start Date End Date Sandra Robin FNP [address] [place] [address] PCP - General Family Medicine, SECURITY ASSOCIATE 04/15/25 documented as of this encounter
[2025-05-17 22:26] VITALS: BP 149/87; PULSE 62; RESP 13; TEMP 37.2; O2SAT 100
[2025-05-17 22:38] LABS: Bacterial Vaginosis PCR NEGATIVE (Negative); Candida Group PCR NOT DETECTED (Not Detect); Candida glab krusei PCR NOT DETECTED (Not Detect); Trichomonas vaginalis PCR DETECTED (Not Detect)
== END 2025-05-17 22:30 | disposition home or self-care (01) ==
PROVIDERS: Physician Assistant Medical; Emergency Provider Emergency Medicine
DX: E87.1 Hypo-osmolality and hyponatremia (principal); Z13.39 Encounter for screening examination for other mental health and behavioral disorders; A59.9 Trichomoniasis, unspecified; R00.1 Bradycardia, unspecified; Z87.19 Personal history of other diseases of the digestive system; Z76.89 Persons encountering health services in other specified circumstances
CPT/HCPCS: 36415; 80053; 80179; 80307; 81001; 81025; 81515; 85025; 87086; 87147; 87491; 87591; 87661; 93005; 99285; S9485

== ENCOUNTER → 2025-05-17 12:52 | Outpatient (BNV) | payer MEDICAID, SELFPAY | PROVIDERS: Emergency Provider Emergency Medicine; Visit Provider Internal Medicine | DX: I49.9 Cardiac arrhythmia, unspecified (principal); R00.1 Bradycardia, unspecified | CPT/HCPCS: 93010 ==